=== PATIENT | female | born 1940 | race Caucasian/White ===

== ENCOUNTER 2023-10-16 14:52 | Outpatient (RCR) | payer MEDICARE, SELFPAY | END 2023-11-03 23:59 | disposition home or self-care (01) | LOC: SPT 14:52 | PROVIDERS: Visit Provider Surgery Trauma Surgery | DX: N39.3 Stress incontinence (female) (male) (principal) | CPT/HCPCS: 97110; 97161; 97530 ==

== ENCOUNTER 2023-11-04 06:00 | Outpatient (RCR) | payer MEDICARE, SELFPAY | END 2023-12-03 23:59 | disposition home or self-care (01) | LOC: SPT 06:00 | PROVIDERS: Visit Provider Surgery Trauma Surgery | DX: N39.3 Stress incontinence (female) (male) (principal) | CPT/HCPCS: 97530 ==